=== PATIENT | male | born 1960 | race Caucasian/White ===

== ENCOUNTER → 2024-01-31 | Outpatient (CLI) | payer MEDICARE, BC, SELFPAY ==
[2024-01-31 16:54] LABS: Prostate Specific Antigen 0.53 ng/mL (0-4.00)
[2024-02-07 06:26] LABS: Testosterone, Free,Dialysis 34.7 pg/mL (35.0-155.0); Testosterone, Total, Dialysis 290 ng/dL (250-1100)
== END | disposition home or self-care (01) ==
LOC: COPL 15:18
PROVIDERS: PCP Internal Medicine; Referring Provider Surgery; Visit Provider Surgery
DX: N40.1 Benign prostatic hyperplasia with lower urinary tract symptoms (principal); N52.9 Male erectile dysfunction, unspecified
CPT/HCPCS: 36415; 84153; 84402; 84403